=== PATIENT | male | born 1995 | race Caucasian/White ===

== ENCOUNTER 2023-05-03 11:39 | Emergency (ER) | payer MEDICAID, SELFPAY ==
--- NOTE | ~2023-05-03 | US_ITS ---
EXAMINATION: US scrotum doppler DATE: 05/03/2023 14:47 INDICATION: Left testicular pain TECHNIQUE: Testicular sonogram utilizing grayscale and Doppler COMPARISON: None. FINDINGS: The right testis measures 5.0 x 3.2 x 2.6 cm. The left testis measures 4.1 x 3.1 x 2.3 cm. Symmetric normal grayscale appearance to both testes. There is normal vascular flow to both testes. The right e pididymis is normal with normal vascular flow. The left epididymis is normal with normal vascular margaret w. There is no varicocele or hydrocele. Left scrotal soft tissue swelling and subcutaneous edema IMPRESSION: 1. Nonspecific unilateral soft tissue swelling and subcutaneous edema at the left scrotum which coul d be due to cellulitis. Normal bilateral testes and epididymides. Reviewed, dictated and finalized at location A. [employer]ING [employer] IMPRESSION: 1. Nonspecific unilateral soft tissue swelling and subcutaneous edema at the l eft scrotum which could be due to cellulitis. Normal bilateral testes and epidi dymides.
[2023-05-03 11:48] VITALS: BP 157/88; PULSE 93; RESP 17; TEMP 36.4; O2SAT 99
[2023-05-03 15:13] LABS: Appearance Urine Clear (Clear); Bilirubin Urine Negative (Negative); Blood Urine Negative (Negative); Color Urine Yellow (Yellow); Glucose Urine UA Negative (Negative); Ketones Urine Negative (Negative); Leukocyte Esterase Ur Negative LEU/UL (Negative); Nitrate Urine Negative (Negative); Protein Urine Negative (Negative); Specific Grav Ur 1.015 (1.001-1.035); Urobilinogen Urine 0.2 mg/dL (<2.0); pH Urine 5.5 (5.0-9.0)
[2023-05-03 15:14] LABS: Add Urine Microscopic? NO
--- NOTE | 2023-05-03 15:23 | ED.MALEGU ---
HPI - Male Genitourinary General Chief complaint: Urogenital-Male Stated complaint: testicular pain and swelling Time Seen by Provider: 05/03/23 13:42 Source: patient, RN notes reviewed and old records reviewed Mode of arrival: ambulatory Limitations: no limitations History of Present Illness HPI Narrative: This is a 28 year old male who presents for evaluation of left testicular swelling. Patient states he had left testicular and scrotal swelling for 10 days. He states his swelling has resolved but he has noticed a knot to his left testicle still. He denies color change to his skin. HE denies dysuria, hematuria, nausea, vomiting, fever, or penile discharge. Related Data Allergies Allergy/AdvReac Type Severity Reaction Status Date / Time No Known Allergies Allergy Verified 05/03/23 15:33 Review of Systems Constitutional: Constitutional: Denies weakness Cardiovascular: Cardiovascular: Denies syncope, Denies rapid heart rate, Denies irregular heart rhythm, Denies leg edema and Denies dyspnea Respiratory: Respiratory: Denies chest congestion, Denies hemoptysis, Denies excessive phlegm production and Denies dyspnea Gastrointestinal: Gastrointestinal: Denies abdominal pain, Denies hematochezia, Denies diarrhea and Denies vomiting Genitourinary: Genitourinary: Denies hematuria, Denies dysuria, Denies penile discharge and Reports testicular pain Musculoskeletal: Musculoskeletal: Denies joint swelling, Denies loss of height and Denies muscle weakness Neurologic: Denies syncope, Denies focal weakness and Denies weakness PMFSH Past Medical History Medical History (Updated 05/04/23 @ 00:00 by [facility]) Patient denies medical problems Surgical History Surgical History (Updated 05/03/23 @ 15:31 by Johanna Horton MD) No pertinent past surgical history Social History Social History (Updated 05/03/23 @ 15:31 by Johanna Horton MD) Substance use: never Exam Const: General: alert Nutritional Appearance: obese HENMT: Head: normal to inspection Eyes: EOM: EOMs intact bilaterally Neck: Neck: normal visual inspection Resp: Effort & Inspection: normal respiratory effort : General: Yes no CVA tenderness Penis: Yes circumcised Scrotum: scrotum normal Testes: testicular tenderness Skin: General skin exam: normal color Rashes: no rashes Wounds: no wounds Neuro: General: patient oriented x3 and moves all extremities Cranial nerves: Yes CN's II-XII intact bilaterally Psych: Mental Status: mental status grossly normal Affect: normal affect Attitude: cooperative Course Reevaluation(s) Reevaluation #1: I Discussed with patient US shows normal testicles but some swelling of his scrotum. I do not appreciate any significant swelling or erythema or warmth on my examination. given patient reports he had previous swelling will place on antibiotics and refer to urology Date: 05/03/23 Time: 15:32 Vital Signs Vital signs: Vital Signs Temperature 97.6 F 05/03/23 11:48 Pulse Rate 93 05/03/23 11:48 Respiratory Rate 17 05/03/23 11:48 Blood Pressure 157/88 H 05/03/23 11:48 Pulse Oximetry 99 05/03/23 11:48 Oxygen Delivery Room Air 05/03/23 11:48 Temperature 97.6 F 05/03/23 11:48 Pulse Rate 93 05/03/23 11:48 Respiratory Rate 17 05/03/23 11:48 Blood Pressure 157/88 H 05/03/23 11:48 Pulse Oximetry 99 05/03/23 11:48 Oxygen Delivery Room Air 05/03/23 11:48 MDM - Male Genitourinary Differential Diagnosis Differential diagnosis: Likely urinary tract infection, epididymitis and other (scrotal abscess, cellulitis, hydrocele, testicular mass) Lab Data Attestation: I reviewed the patient's lab results. Labs: Lab Results 05/03/23 Range/Units 15:02 Urine Color Yellow (Yellow) Urine Appearance Clear (Clear) Urine pH 5.5 (5.0-9.0) Ur Specific [place] 1.015 (1.001-1.035) Urine Protein Negative (Negative) mg/dL Urine Glucose (UA)
== END 2023-05-03 15:59 | disposition home or self-care (01) ==
PROVIDERS: Emergency Provider General Practice
DX: N50.89 Other specified disorders of the male genital organs (principal)
CPT/HCPCS: 76870; 81003; 93976; 99284

== ENCOUNTER 2023-10-29 10:31 | Outpatient (CLI) | payer OTHER, SELFPAY ==
--- NOTE | 2023-10-29 10:53 | ECG_ITS ---
SEE SCANNED COPY FOR CONFIRMED REPORT MTDD
[2023-10-29 10:54] LABS: Basophils Absolute Auto 0.07 K/mm3 (0.00-0.10); Eosinophils Absolute Auto 0.16 K/mm3 (0.02-0.50); Eosinophils Percent Auto 2.3 % (1.0-6.0); Hematocrit 46.6 % (40.0-54.0); Hemoglobin 15.7 g/dL (14.0-18.0); Immature Granulocyte Absolute 0.02 K/mm3 (0.00-0.00); Immature Granulocyte Percent A 0.3 % (0.0-0.0); Lymphocytes Absolute Auto 2.08 K/mm3 (1.10-4.50); Lymphocytes Percent Auto 30.2 % (18.0-42.0); Mean Corpuscular HGB Conc 33.7 g/dL (32-36); Mean Corpuscular Hemoglobin 28.5 pg (27.0-31.0); Mean Corpuscular Volume 84.6 fL (78.0-102.0); Mean Platelet Volume 9.7 fl (8.7-11.0); Monocytes Percent Auto 7.3 % (2.0-11.0); Neutrophils Absolute Auto 4.06 K/mm3 (1.70-7.20); Neutrophils Percent Auto 58.9 % (50.0-70.0); Platelet Count Result 303 K/mm3 (150-420); Red Blood Count 5.51 M/mm3 (4.70-6.10); Red Cell Distribution Width 13.5 % (11.6-14.4); White Blood Count 6.9 K/mm3 (4.8-10.8)
[2023-10-29 11:20] LABS: Hemoglobin A1C 5.2 % (<5.7)
[2023-10-29 11:40] LABS: Alanine Aminotransferase 50 U/L (16-63); Albumin Level 4.3 g/dL (3.4-5.0); Alkaline Phosphatase 77 U/L (46-116); Anion Gap 15 mmol/L (4-12); Aspartate Amino Transferase 23 U/L (15-37); Bilirubin,Total 0.7 mg/dL (0.00-1.00); Blood Urea Nitrogen 11 mg/dL (7-18); Calcium 9.2 mg/dL (8.5-10.1); Carbon Dioxide 24 mmol/L (21-32); Chloride 101 mmol/L (98-108); Cholesterol 251 mg/dL (0-200); Estimated Glomerular Filt Rate > 60; Free T4 Free Thyroxine 1.05 ng/dL (0.76-1.46); Glucose 99 mg/dL (70-99); HDL Direct 36 mg/dL (40-60); LDL Cholesterol Calculated 203 mg/dL (<130); Osmolality Calculated 289 mOsm/kg (285-295); Potassium 3.7 mmol/L (3.5-5.1); Sodium 140 mmol/L (136-145); Thyroid Stimulating Hormone 1.12 uIU/mL (0.36-3.74); Total Protein 8.3 g/dL (6.4-8.2); Triglycerides 60 mg/dL (0-150)
[2023-10-31 02:38] LABS: Total Triiodothyronine (T3) 100 ng/dL (76-181)
== END 2023-10-29 10:32 | disposition home or self-care (01) ==
LOC: CHSLAB 10:36
PROVIDERS: PCP Registered Nurse; Visit Provider Registered Nurse
DX: E78.5 Hyperlipidemia, unspecified (principal); R73.01 Impaired fasting glucose; R07.9 Chest pain, unspecified
CPT/HCPCS: 36415; 80053; 80061; 83036; 84439; 84443; 84480; 84481; 85025; 93005

== ENCOUNTER 2024-10-30 09:29 | Outpatient (CLI) | payer OTHER, SELFPAY ==
--- OUTSIDE RECORDS SUMMARY | 2024-10-30 09:36 | XMS_ITS | Clinical Summary ---
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 Gender Identity Not on file Sexual Orientation Not on file Last Filed Vital Signs Vital Sign Reading Time Taken Comments Blood Pressure 160/102 05/03/2023 10:38 AM LD TEACHER Pulse 95 05/03/2023 10:38 AM LD TEACHER Temperature 37.3 C (99.1 F) 05/03/2023 10:38 AM LD TEACHER Respiratory Rate 20 05/03/2023 10:38 AM LD TEACHER Oxygen Saturation 97% 05/03/2023 10:38 AM LD TEACHER Inhaled Oxygen Concentration - - Weight 166.9 kg (368 lb) 05/03/2023 10:38 AM LD TEACHER Height 218.4 cm (7' 2 ) 05/03/2023 10:38 AM LD TEACHER Body Mass Index 34.98 05/03/2023 10:38 AM LD TEACHER Plan of Treatment Health Maintenance Due Date Last Done Comments Depression Screening 1995 Hepatitis C Screening 1995 Varicella Vaccines (2 of 2 - 2-dose childhood series) 1999 07/30/1996 DTaP/Tdap/Td Vaccine (5 - Tdap) 2006 07/30/1996, 1995, 1995, Additional history exists Regular Well Visit/Exam 18-64 2013 Covid-19 Vaccine ( season) 2024 12/17/2020, 10/27/2020 Influenza Vaccine (Season Ended) 2025 Hepatitis B Screening Completed 1995 , 1995, 1995 HPV Vaccines Aged Out No longer eligi ble based on patient's age to complete this topic Pneumococcal vaccine <65 Aged Out No longer eligible based on patient's age to complete this topic Insurance IDPA Care Teams Doctor Of Audiology Relationship Specialty Start Date End Date Unknown, Notinfile PCP - General 04/30/23
--- OUTSIDE RECORDS SUMMARY | 2024-10-30 09:36 | XMS_ITS | Referral Summary ---
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 Gender Identity Not on file Sexual Orientation Not on file Last Filed Vital Signs Vital Sign Reading Time Taken Comments Blood Pressure 160/102 05/03/2023 10:38 AM RECOVERY ANALYST Pulse 95 05/03/2023 10:38 AM RECOVERY ANALYST Temperature 37.3 C (99.1 F) 05/03/2023 10:38 AM RECOVERY ANALYST Respiratory Rate 20 05/03/2023 10:38 AM RECOVERY ANALYST Oxygen Saturation 97% 05/03/2023 10:38 AM RECOVERY ANALYST Inhaled Oxygen Concentration - - Weight 166.9 kg (368 lb) 05/03/2023 10:38 AM RECOVERY ANALYST Height 218.4 cm (7' 2 ) 05/03/2023 10:38 AM RECOVERY ANALYST Body Mass Index 34.98 05/03/2023 10:38 AM RECOVERY ANALYST Plan of Treatment [place] [phone] Care Teams Water Filterer Relationship Specialty Start Date End Date Unknown, Notinfile PCP - General 04/30/23
--- OUTSIDE RECORDS SUMMARY | 2024-10-30 09:36 | XMS_ITS | Clinical Summary ---
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 Gender Identity Not on file Sexual Orientation Not on file Plan of Treatment Health Maintenance Due Date Last Done Comments Annual Physical 1998 Hepatitis C 2013 DTaP, Tdap and Td Vaccines ( 1 - Tdap) 2014 Hepatitis B Vaccines (1 of 3 - 19+ 3-dose series) 2014 COVID-19 Vaccine (2023-2 5 season) 2024 HPV Vaccines Aged Out No longer eligi ble based on patient's age to complete this topic Meningococcal B Vaccine Aged Out No l onger eligible based on patient's age to complete this topic Meningococcal Vaccine Aged Out No vi veda eligible based on patient's age to complete this topic Pneumococcal Vaccine: Pediat rics (0 to 5 Years) and At-Risk Patients (6 to 49 Years) Aged Out No longer eligible b ased on patient's age to complete this topic RSV Immunizations Under 20 Months Aged Out No longer eligible based on patient's age to complete this topic
[2024-10-30 09:52] LABS: Basophils Absolute Auto 0.05 K/mm3 (0.00-0.10); Basophils Percent Auto 0.5 % (0.0-1.0); Eosinophils Absolute Auto 0.11 K/mm3 (0.02-0.50); Eosinophils Percent Auto 1.1 % (1.0-6.0); Hematocrit 47.1 % (40.0-54.0); Hemoglobin 15.8 g/dL (14.0-18.0); Immature Granulocyte Absolute 0.04 K/mm3 (0.00-0.00); Immature Granulocyte Percent A 0.4 % (0.0-0.0); Lymphocytes Absolute Auto 2.47 K/mm3 (1.10-4.50); Mean Corpuscular HGB Conc 33.5 g/dL (32-36); Mean Corpuscular Hemoglobin 28.2 pg (27.0-31.0); Mean Platelet Volume 8.9 fl (8.7-11.0); Monocytes Absolute Auto 0.76 K/mm3 (0.10-0.90); Monocytes Percent Auto 7.7 % (2.0-11.0); Neutrophils Absolute Auto 6.45 K/mm3 (1.70-7.20); Neutrophils Percent Auto 65.3 % (50.0-70.0); Platelet Count Result 385 K/mm3 (150-420); Red Blood Count 5.61 M/mm3 (4.70-6.10); Red Cell Distribution Width 13.2 % (11.6-14.4); White Blood Count 9.9 K/mm3 (4.8-10.8)
[2024-10-30 10:14] LABS: Alanine Aminotransferase 61 U/L (6-50); Albumin Level 4.6 g/dL (3.5-5.1); Alkaline Phosphatase 89 U/L (38-126); Anion Gap 10 mmol/L (4-12); Aspartate Amino Transferase 37 U/L (17-59); Bilirubin,Total 0.7 mg/dL (0.2-1.3); Blood Urea Nitrogen 8 mg/dL (9-20); Calcium 9.2 mg/dL (8.4-10.2); Carbon Dioxide 22 mmol/L (22-30); Chloride 108 mmol/L (98-107); Cholesterol 203 mg/dL (0-200); Estimated Glomerular Filt Rate > 60; Glucose 88 mg/dL (65-110); HDL Direct 39 mg/dL; LDL Cholesterol Calculated 146 mg/dL (<130); Osmolality Calculated 287 mOsm/kg (285-295); Potassium 4.3 mmol/L (3.4-5.0); Sodium 140 mmol/L (137-145); Triglycerides 91 mg/dL (<150)
[2024-10-30 10:29] LABS: Free T4 Free Thyroxine 1.21 ng/dL (0.78-2.19)
[2024-11-01 04:04] LABS: Total Triiodothyronine (T3) 109 ng/dL (76-181)
== END 2024-10-30 09:30 | disposition home or self-care (01) ==
LOC: CHSLAB 09:31
PROVIDERS: PCP Registered Nurse; Visit Provider Family Medicine
DX: I10 Essential (primary) hypertension (principal); E66.9 Obesity, unspecified; E78.5 Hyperlipidemia, unspecified; R53.83 Other fatigue
CPT/HCPCS: 36415; 80053; 80061; 84439; 84443; 84480; 85025